=== PATIENT | male | born 1990 | race African-American/Black ===

== ENCOUNTER 2021-11-04 11:45 | Emergency (ER) | payer OTHER ==
[~2021-11-04] VITALS: Ht 165.1 cm; Wt 167.8 kg
== END 2021-11-04 15:53 | disposition home or self-care (01) ==
LOC: ER 11:45
DX: S89.91XA Unspecified injury of right lower leg, initial encounter (principal); W18.30XA Fall on same level, unspecified, initial encounter; Y93.9 Activity, unspecified; Y92.018 Other place in single-family (private) house as the place of occurrence of the external cause; Y99.9 Unspecified external cause status